=== PATIENT | male | born 1980 | race Caucasian/White ===

== ENCOUNTER 2018-01-19 16:53 | Emergency (ER) | payer SELFPAY ==
[~2018-01-19] VITALS: Ht 180.3 cm; Wt 83.9 kg
--- NOTE | 2018-01-19 17:38 | ED.ADGEN ---
Past History Past Medical History: UTI Adult General Chief Complaint Chief Complaint ".. I ve been having problems for a month.. this Lt flank and abd. pain.. I ve been on Cipro, .. the Levaquin... then Amikacina injections 500 twice a day.. but I am still having pain..." HPI HPI Patient is a 37 year old male who presents with above hx and fever complaints of left flank abdomen pain. Patient previously seen in [facility] received a CT therefore left flank pain and diagnosed with pyelonephritis. Patient did receive a course of Cipro and then Levaquin. Patient has recently completed a five-day course of [place] antibiotic- Amikacia 500mg bid. Patient's CT in [facility] did show findings of a right fecal Lith in the appendix area and Lt. pyelonephritis. Patient denies any history of immunosuppression. Patient normally healthy. Patient recently has had travel to [facility]. Review of Systems Review of Systems Constitutional: History of fever or chills [] Eyes: Denies change in visual acuity, redness, or eye pain [] HENT: Denies nasal congestion or sore throat [] Respiratory: Denies cough or shortness of breath [] Cardiovascular: No additional information not addressed in HPI [] GI: Complaints of left flank abdominal pain,. Denies nausea, vomiting, bloody stools or diarrhea [] : Denies dysuria or hematuria [] Musculoskeletal: Denies back pain or joint pain [] Integument: Denies rash or skin lesions [] Neurologic: Denies headache, focal weakness or sensory changes [] Endocrine: Denies polyuria or polydipsia [] All other systems were reviewed and found to be within normal limits, except as documented in this note. Family History Family History Noncontributory Current Medications Current Medications Current Medications Medications (Trade) Dose Ordered Sig/Fantasma Start Time Stop Time Status Last Admin Dose Admin Ceftriaxone Sodium 2 gm/ Sodium Chloride 100 ml @ 200 mls/hr 1X ONCE 01/19/18 19:15 01/19/18 19:44 DC 01/19/18 19:30 200 MLS/HR Ceftriaxone Sodium (Rocephin) 2 gm STK-MED ONCE 01/19/18 19:23 01/19/18 19:24 DC Famotidine (Pepcid Vial) 20 mg 1X ONCE 4/28/18 19:15 01/19/18 19:16 DC 01/19/18 19:31 20 MG Ketorolac Tromethamine (Toradol) 30 mg 1X ONCE 01/19/18 19:15 01/19/18 19:16 DC 01/19/18 19:30 30 MG Lactated Ringer's 1,000 ml @ 100 mls/hr Q10H 01/19/18 21:00 01/20/18 00:42 DC 01/19/18 21:01 100 MLS/HR Ondansetron HCl (Zofran) 8 mg 1X ONCE 01/19/18 19:15 01/19/18 19:16 DC 01/19/18 19:31 8 MG Sodium Chloride 100 ml @ As Directed STK-MED ONCE 01/19/18 19:23 01/19/18 19:24 DC Allergies Allergies Allergies Coded Allergies Type Severity Reaction Last Updated Verified No Known Drug Allergies 01/19/18 No Physical Exam Physical Exam Constitutional: Moderately acute distress, non-toxic appearance. [] HENT: Normocephalic, atraumatic, bilateral external ears normal, oropharynx moist, no oral exudates, nose normal. [] Eyes: PERRLA, EOMI, conjunctiva normal, no discharge. [] Neck: Normal range of motion, no tenderness, supple, no stridor. [] Cardiovascular:Heart rate regular rhythm, no murmur [] Lungs & Thorax: Bilateral breath sounds equal at apex with scattered wheezes on auscultation [] Abdomen: Bowel sounds normal, soft, no tenderness, no masses, no pulsatile masses. [] Lt flank pain on percussion Skin: Warm, dry, no erythema, no rash. [] Back: No tenderness, no CVA tenderness. [] Extremities: No tenderness, no cyanosis, no clubbing, ROM intact, no edema. [] No psoas sign. Neurologic: Alert and oriented X 3, normal motor function, normal sensory function, no focal deficits noted. [] Psychologic: Affect anxious, judgement normal, mood normal. [] Current Patient Data Vital Signs Vital Signs Date Time Temp Pulse Resp B/P (MAP) Pulse Ox O2 Delivery O2 Flow Rate FiO2 01/19/18 18:04 98.4 91 20 96 Room Air Lab Results Laboratory Tests Test 01/19/18 18:35 01/19/18 19:00 White Blood Count 11.9 x10^3/uL (4.0-11.0) H Red Blood Count 5.68 x10^6/uL (4.30-5.70) Hemoglobin 15.8 g/dL (13.0-17.5) Hematocrit 47.1 % (39.0-53.0) Mean Corpuscular Volume 83 fL (79-100) Mean Corpuscular Hemoglobin 28 pg (25-35) Mean Corpuscular Hemoglobin Concent 34 g/dL (31-37) Red Cell Distribution Width 13.7 % (11.5-14.5) Platelet Count 289 x10^3/uL (140-400) Neutrophils (%) (Auto) 65 % (31-73) Lymphocytes (%) (Auto) 25 % (24-48) Monocytes (%) (Auto) 7 % (0-9) Eosinophils (%) (Auto) 3 % (0-3) Basophils (%) (Auto) 1 % (0-3) Neutrophils # (Auto) 7.7 x10^3uL (1.8-7.7) Lymphocytes # (Auto) 2.9 x10^3/uL (1.0-4.8) Monocytes # (Auto) 0.8 x10^3/uL (0.0-1.1) Eosinophils # (Auto) 0.4 x10^3/uL (0.0-0.7) Basophils # (Auto) 0.1 x10^3/uL (0.0-0.2) Prothrombin Time 10.5 SEC (9.4-11.4) Prothrombin Time INR 1.0 (0.9-1.1) PTT 26 SEC (23-33) Sodium Level 140 mmol/L (136-145) Potassium Level 3.9 mmol/L (3.5-5.1) Chloride Level 102 mmol/L (98-107) Carbon Dioxide Level 30 mmol/L (21-32) Anion Gap 8 (6-14) Blood Urea Nitrogen 9 mg/dL (8-26) Creatinine 1.1 mg/dL (0.7-1.3) Estimated GFR (Cockcroft-Gault) 74.5 Glucose Level 98 mg/dL (70-99) Lactic Acid Level 1.4 mmol/L (0.4-2.0) Calcium Level 9.5 mg/dL (8.5-10.1) Total Bilirubin 0.8 mg/dL (0.2-1.0) Direct Bilirubin 0.1 mg/dL (0.0-0.2) Aspartate Amino Transferase (AST) 33 U/L (15-37) Alanine Aminotransferase (ALT) 66 U/L (16-63) H Alkaline Phosphatase 68 U/L (46-116) Total Protein 8.2 g/dL (6.4-8.2) Albumin 4.5 g/dL (3.4-5.0) Lipase 244 U/L (73-393) Urine Collection Type Unknown Urine Color Yellow Urine Clarity Clear Urine pH 8.0 Urine Specific [place] 1.015 Urine Protein Neg (NEG-TRACE) Urine Glucose (UA) Neg mg/dL (NEG) Urine Ketones (Stick) Neg mg/dL (NEG) Urine Blood Trace (NEG) Urine Nitrite Neg (NEG) Urine Bilirubin Neg (NEG) Urine Urobilinogen Dipstick 0.2 mg/dL (0.2 mg/dL) Urine Leukocyte Esterase Neg (NEG) Urine RBC Rare /HPF (0-2) Urine WBC 0 /HPF (0-4) Urine Squamous Epithelial Cells None /LPF Urine Bacteria 0 /HPF (0-FEW) Urine Opiates Screen Pos (NEG) Urine Methadone Screen Neg (NEG) Urine Barbiturates Neg (NEG) Urine Phencyclidine Screen Neg (NEG) Urine Amphetamine/Methamphetamine Neg (NEG) Urine Benzodiazepines Screen Neg (NEG) Urine Cocaine Screen Neg (NEG) Urine Cannabinoids Screen Neg (NEG) Urine Ethyl Alcohol Neg (NEG) EKG EKG [] Radiology/Procedures Radiology/Procedures My interpretation of acute abdomen film shows no free air in the diaphragm. Nonspecific bowel gas pattern. No acute cardiopulmonary findings. CT of abdomen shows mildly distended thick walled appendix. No perinephric stranding.- Low grade appendicitis possible. No findings of pyelonephritis as compared to [facility] Course & Med Decision Making Course & Med Decision Making Pertinent Labs and Imaging studies reviewed. (See chart for details). Discussed options of treatment for patient recommended admission and transfer to [facility] for surgical and urology evaluation. Patient however declined and will complete another course of antibiotics of Bactrim. Recommend patient stay on a clear fluid diet only if still having discomfort. Tylenol ibuprofen pain. Return if any concerns. Pt. exhibit UCAR capacity and seems aware of risks of not have a surgical and urology eval. [] Final Impression Final Impression 1. Hx. of Fever[] 2. Hx. Perinephritis / pyelonephritis left sided 3. Hx. UTI 4. Urosepsis- failure out pt tx- possible? 5. Low grade appendicitis ? 6. Leukocytosis 7. Elevated ALT- 66 Problems: Dragon Disclaimer Dragon Disclaimer This electronic medical record was generated, in whole or in part, using a voice recognition dictation system. LAWANDA VASQUEZ MD Jan 19, 2018 17:38
[2018-01-19] MEDS ORDERED: IV RINGERS SOLUTION,LACTATED 1,000 ML IV SCH ×2 (19:00→21:00)
[2018-01-19 19:02] LABS: BASO # 0.1 x10^3/uL (0.0-0.2); BASO % 1 % (0-3); EOS # 0.4 x10^3/uL (0.0-0.7); EOS % 3 % (0-3); HEMATOCRIT 47.1 % (39.0-53.0); HEMOGLOBIN 15.8 g/dL (13.0-17.5); LYMPH # 2.9 x10^3/uL (1.0-4.8); LYMPH % 25 % (24-48); MEAN CORPUSCULAR HEMOGLOBIN 28 pg (25-35); MEAN CORPUSCULAR HGB CONC 34 g/dL (31-37); MEAN CORPUSCULAR VOLUME 83 fL (79-100); MONO # 0.8 x10^3/uL (0.0-1.1); MONO % 7 % (0-9); NEUT # 7.7 x10^3uL (1.8-7.7); NEUT % 65 % (31-73); PLATELET COUNT 289 x10^3/uL (140-400); RED BLOOD COUNT 5.68 x10^6/uL (4.30-5.70); RED CELL DISTRIBUTION WIDTH 13.7 % (11.5-14.5); WHITE BLOOD COUNT 11.9 x10^3/uL (4.0-11.0)
[2018-01-19 19:12] LABS: ALBUMIN 4.5 g/dL (3.4-5.0); CALCIUM 9.5 mg/dL (8.5-10.1); CREATININE 1.1 mg/dL (0.7-1.3); DIRECT BILIRUBIN 0.1 mg/dL (0.0-0.2); GFR 74.5; POTASSIUM 3.9 mmol/L (3.5-5.1); TOTAL BILIRUBIN 0.8 mg/dL (0.2-1.0); TOTAL PROTEIN 8.2 g/dL (6.4-8.2)
[2018-01-19] MEDS ORDERED: KETOROLAC 30 MG/ML VIAL. IV ONE (19:15)
[2018-01-19] MEDS ORDERED: FAMOTIDINE 20 MG/2 ML VIAL IVP ONE (19:15)
[2018-01-19] MEDS ORDERED: ONDANSETRON PF 4 MG/2 ML VIAL. IV ONE (19:15)
[2018-01-19] MEDS ORDERED: IV NORMAL SALINE 100ML 100 ML ONE (19:23)
--- NOTE | 2018-01-19 19:37 | RAD ---
CT ABDOMEN PELVIS WO CONTRAST Indication: Abd pain, left flank pain x2 months Exposure: One or more of the following individualized dose reduction techniques were utilized for this examination: 1. Automated exposure control 2. Adjustment of the mA and/or kV according to patient size 3. Use of iterative reconstruction technique. Comparison: None are available. Contrast: None Lung bases clear. Evaluation of solid viscera, bowel and vasculature is compromised by the noncontrast technique. Liver and spleen unremarkable. Pancreas unremarkable. No adrenal mass. Kidneys unremarkable. No calcified gallstone. Gallbladder is contracted. No aortic aneurysm. No significant lymph node enlargement. No bowel obstruction. No evidence of acute colitis. The appendix is distended with some wall thickening. Although the proximal appendix demonstrates gas within its lumen, distally there is some density was good represent old oral contrast or appendicoliths. The transverse appendix diameter measures 10 mm. No evidence of periappendiceal inflammation. No ascites. Prostate gland measures about 4.3 cm wide. Urinary bladder is not distended. No aggressive bone destruction. There are degenerative changes of the spine. IMPRESSION: 1. Appendix is mildly distended and thick-walled. However, note there is gas within a portion of the appendiceal lumen and there is no periappendiceal stranding. Considering the patient's symptoms are on the left, this may just represent a normal appearance for this patient, but the possibility of low-grade appendicitis should be considered. 2. No other acute findings. Electronically signed by: Faibano Jones MD (01/19/2018 7:33 PM) [id number]
[2018-01-19 20:53] LABS: AMPHETAMINE/METHAMPHETAMINE NEG (NEG); BARBITURATES NEG (NEG); BENZODIAZEPINES NEG (NEG); CANNABINOIDS NEG (NEG); COCAINE NEG (NEG); METHADONE NEG (NEG); OPIATES POS (NEG); PHENCYCLIDINE NEG (NEG)
[2018-01-19 21:13] LABS: BACTERIA,URINE 0 /HPF (0-FEW); BILIRUBIN,URINE NEG (NEG); CLARITY,URINE CLEAR; COLOR,URINE YELLOW; GLUCOSE,URINE NEG (NEG); NITRITE,URINE NEG (NEG); RBC,URINE RARE /HPF (0-2); UROBILINOGEN,URINE 0.2 mg/dL (0.2 mg/dL); WBC,URINE 0 /HPF (0-4)
[2018-01-19] MEDS ORDERED: SULF1TAB24 PO (23:58)
[2018-01-20 00:30] VITALS: BP 135/93
--- NOTE | 2018-01-20 09:36 | RAD ---
ACUTE ABDOMEN SERIES Clinical Indication: Abdominal pain, left flank pain for 2 months Comparison: None. Findings: Normal lung volume. No focal consolidations. Normal pulmonary vasculature. No pleural effusion or pneumothorax. The cardiomediastinal silhouette and great vessels are normal. No obvious free air. Air-fluid level within a prominent small bowel loop in the right lower quadrant measuring up to 2.9 cm. Air and stool is seen to the level of the rectum. No abnormal calcification. No acute osseous abnormality. IMPRESSION: 1. Air-fluid level within a prominent small bowel loop in the right lower quadrant. Air and stool is seen to the level of the rectum. Bowel gas pattern is nonobstructive. Air-fluid level can be seen with enteritis. 2. No acute cardiopulmonary process.
== END 2018-01-20 00:30 | disposition home or self-care (01) ==
LOC: ER 16:53
DX: D72.829 Elevated white blood cell count, unspecified (principal); R74.8 Abnormal levels of other serum enzymes; Z87.440 Personal history of urinary (tract) infections
CPT/HCPCS: 36415; 74022; 74176; 80048; 80076; 80307; 81001; 83605; 83690; 85025; 85610; 85730; 87040; 96361; 96365; 96366; 96375; 99285; J0696; J1885; J2405; J7120; S0028; G0479